=== PATIENT | female | born 1980 | race Caucasian/White ===

== ENCOUNTER 2022-01-07 16:43 | Emergency (ER) | payer MEDICAID ==
[~2022-01-07] VITALS: Ht 175.3 cm; Wt 91.0 kg
[2022-01-07 16:56] VITALS: BP 147/99
[2022-01-07] MEDS ORDERED: BICT1TAB PO (17:09)
== END 2022-01-07 17:18 | disposition home or self-care (01) ==
LOC: ER 16:43
DX: Z76.0 Encounter for issue of repeat prescription (principal); F64.0 Transsexualism; Z86.19 Personal history of other infectious and parasitic diseases
CPT/HCPCS: 99281; 99283

== ENCOUNTER 2022-02-06 09:48 | Emergency (ER) | payer MEDICAID ==
[~2022-02-06] VITALS: Ht 175.3 cm; Wt 92.0 kg
[~2022-02-06 09:48] MED LIST: BICT1TAB PO
[2022-02-06 09:49] VITALS: BP 171/105
[2022-02-06] MEDS ORDERED: BICT1TAB PO (09:55)
== END 2022-02-06 10:07 | disposition home or self-care (01) ==
LOC: ER 09:48
DX: Z76.0 Encounter for issue of repeat prescription (principal); Z90.49 Acquired absence of other specified parts of digestive tract; Z98.890 Other specified postprocedural states
CPT/HCPCS: 99281